=== PATIENT | female | born 1975 | race Caucasian/White ===

== ENCOUNTER 2020-08-16 12:58 | Observation (INO) | payer BC ==
[~2020-08-16] VITALS: Ht 162.6 cm; Wt 78.0 kg
[2020-08-16] MEDS ORDERED: SODIUM CHLORIDE 0.9% 1000ML 1,000 ML IV STA (13:14)
[2020-08-16] MEDS ORDERED: NITROGLYCERIN 0.4 MG SUBL ONE (13:26)
[2020-08-16] MEDS ORDERED: ONDANSETRON HCL INJ 2MG/ML 2ML 2 MG/ML VIAL IV NR (13:30)
[2020-08-16] MEDS ORDERED: MORPHINE SULFATE INJ 2 MG/ML SYR IV NR (13:30)
[2020-08-16] MEDS ORDERED: ASPIRIN 81 MG CHEW TAB PO NR (13:30)
[2020-08-16 13:36] LABS: BASOPHILS % 0.6 % (0.0-1.0); EOSINOPHILS # (AUTO) 0.1 (0.0-0.4); EOSINOPHILS % 1.4 % (0.0-6.0); HEMATOCRIT 43.3 % (34.2-44.1); HEMOGLOBIN 14.1 g/dL (12.0-16.0); LYMPHOCYTES # (AUTO) 3.5 (1.0-3.2); LYMPHOCYTES % 54.8 % (18.0-39.1); MEAN CORPUSCULAR HEMOGLOBIN 27.5 pg (28-32); MEAN CORPUSCULAR HGB CONC 32.6 g/dL (31-35); MEAN CORPUSCULAR VOLUME 84.4 fL (81-99); MONOCYTES # (AUTO) 0.4 (0.2-0.8); MONOCYTES % 5.7 % (4.4-11.3); NEUTROPHILS # (AUTO) 2.4 (2.1-6.9); NEUTROPHILS % 37.3 % (38.7-80.0); PLATELET COUNT 287 x10e3/uL (140-360); RED BLOOD COUNT 5.13 x10e6/uL (3.6-5.1); RED CELL DISTRIBUTION WIDTH 13.2 % (11.7-14.4)
[2020-08-16 13:50] LABS: INR 0.83; PARTIAL THROMBOPLASTIN TIME 24.7 seconds (23.8-35.5); PROTHROMBIN TIME 11.9 seconds (11.9-14.5)
[2020-08-16 14:01] LABS: ALBUMIN 4.4 g/dL (3.5-5.0); ALBUMIN/GLOBULIN RATIO 1.2 (0.8-2.0); ANION GAP 16.1 mmol/L (8-16); CALCIUM 9.5 mg/dL (8.4-10.2); CREATININE, SERUM 1.09 mg/dL (0.57-1.11); MAGNESIUM 1.7 MG/DL (1.3-2.1); POTASSIUM 4.1 mmol/L (3.5-5.1)
[2020-08-16 14:08] LABS: CREATINE KINASE MB 0.9 ng/mL (0-5.0)
[2020-08-16] MEDS ORDERED: NITROGLYCERIN 0.4 MG SUBL SL PRN (17:00)
[2020-08-16] MEDS: FAMOTIDINE 20 MG/2 ML VIAL IV SCH (18:45)
[2020-08-16] MEDS: MORPHINE SULFATE INJ 2 MG/ML SYR IV PRN (19:43)
[2020-08-16] MEDS: ONDANSETRON HCL INJ 2MG/ML 2ML 2 MG/ML VIAL IV PRN (19:44)
[2020-08-16 22:16] LABS: CREATINE KINASE MB 0.7 ng/mL (0-5.0)
[2020-08-17] VITALS (7 sets, daily range): BP systolic 102–124; BP diastolic 61–83
[2020-08-17] MEDS: ONDANSETRON HCL INJ 2MG/ML 2ML 2 MG/ML VIAL IV PRN (01:15)
[2020-08-17] MEDS: MORPHINE SULFATE INJ 2 MG/ML SYR IV PRN (01:15)
[2020-08-17] MEDS ORDERED: METOPROLOL TARTRATE INJ 1 MG/ML VIAL IV PRN (02:15)
[2020-08-17] MEDS ORDERED: POLYETHYLENE GLYCOL 3350 17 GM PACK PO PRN (02:15)
[2020-08-17] MEDS ORDERED: ACETAMINOPHEN 325 MG TAB PO PRN (02:15)
[2020-08-17] MEDS ORDERED: MAGNESIUM OXIDE 400 MG TAB PO ONE (02:15)
[2020-08-17] MEDS ORDERED: TEMAZEPAM 7.5 MG CAP PO PRN (02:15)
[2020-08-17] MEDS ORDERED: ACETAMIN/BUTALBITAL/CAFFEINE TAB PO PRN (02:45)
[2020-08-17] MEDS ORDERED: TIZANIDINE HCL 4 MG TAB PO PRN (02:45)
[2020-08-17] MEDS ORDERED: LORAZEPAM 1 MG TAB PO PRN (02:45)
[2020-08-17] MEDS: FAMOTIDINE 20 MG/2 ML VIAL IV SCH ×2 (05:48→16:35)
[2020-08-17 05:56] LABS: MAGNESIUM 1.8 MG/DL (1.3-2.1); PHOSPHORUS 4.1 MG/DL (2.3-4.7)
[2020-08-17 06:02] LABS: THYROID STIMULATING HORMONE 2.727 uIU/mL (0.350-4.940)
[2020-08-17 06:24] LABS: BASOPHILS # (AUTO) 0.1 (0.0-0.1); BASOPHILS % 0.7 % (0.0-1.0); EOSINOPHILS # (AUTO) 0.1 (0.0-0.4); EOSINOPHILS % 1.8 % (0.0-6.0); HEMATOCRIT 41.1 % (34.2-44.1); HEMOGLOBIN 13.2 g/dL (12.0-16.0); LYMPHOCYTES # (AUTO) 4.7 (1.0-3.2); LYMPHOCYTES % 66.1 % (18.0-39.1); MEAN CORPUSCULAR HEMOGLOBIN 27.5 pg (28-32); MEAN CORPUSCULAR HGB CONC 32.1 g/dL (31-35); MEAN CORPUSCULAR VOLUME 85.6 fL (81-99); MONOCYTES # (AUTO) 0.5 (0.2-0.8); MONOCYTES % 6.8 % (4.4-11.3); NEUTROPHILS # (AUTO) 1.7 (2.1-6.9); NEUTROPHILS % 24.5 % (38.7-80.0); PLATELET COUNT 248 x10e3/uL (140-360); RED CELL DISTRIBUTION WIDTH 13.4 % (11.7-14.4)
[2020-08-17 06:39] LABS: CREATINE KINASE MB 0.8 ng/mL (0-5.0)
[2020-08-17 07:42] LABS: ALANINE AMINOTRANSFERASE 17 IU/L (0-55); ALBUMIN 3.7 g/dL (3.5-5.0); ALBUMIN/GLOBULIN RATIO 1.2 (0.8-2.0); ALKALINE PHOSPHATASE 61 IU/L (40-150); ANION GAP 16.1 mmol/L (8-16); BLOOD UREA NITROGEN 11 mg/dL (7-26); BUN/CREATININE RATIO 11 (6-25); CALCIUM 8.8 mg/dL (8.4-10.2); CARBON DIOXIDE 23 mmol/L (22-29); CHLORIDE 108 mmol/L (98-107); CHOL/HDL RATIO 3.6 (3.0-3.6); CHOLESTEROL 187 MD/DL (0-199); CREATININE, SERUM 0.97 mg/dL (0.57-1.11); EST GLOMERULAR FILTRATION RATE > 60 ML/MIN (60-); GLUCOSE 87 mg/dL (74-118); HDL CHOLESTEROL 52 MG/DL (40-60); LDL CHOLESTEROL 103 MG/DL (60-130); POTASSIUM 4.1 mmol/L (3.5-5.1); SODIUM 143 mmol/L (136-145); TRIGLYCERIDES 159 MG/DL (0-149)
[2020-08-17] MEDS: DOCUSATE SODIUM 100 MG CAP PO SCH ×2 (08:37→16:35)
[2020-08-17] MEDS ORDERED: Acetamin/Butalbital/Caffeine PO ×2 (08:47→17:41)
[2020-08-17] MEDS ORDERED: ASPIRIN 81 MG ENTERIC COATED PO SCH (09:00)
[2020-08-17] MEDS ORDERED: ASPIRIN EC81 MG PO (09:01)
[2020-08-17] MEDS ORDERED: ACETAMINOPHEN325 M1 PO (09:01)
[2020-08-17] MEDS ORDERED: ATIVAN1 MG PO (09:01)
[2020-08-17] MEDS ORDERED: TIZANIDINE HCL4 MG PO (09:01)
[2020-08-17] MEDS ORDERED: NITROSTAT0.4 MG SL (09:01)
[2020-08-17] MEDS ORDERED: TEMAZEPAM 15 MG CAP PO PRN (13:30)
[2020-08-17] MEDS ORDERED: CYCLOBENZAPRINE10 MG PO (17:41)
[2020-08-17] MEDS ORDERED: VALIUM2 MG PO ×2 (17:41→17:44)
== END 2020-08-17 18:55 | disposition home or self-care (01) ==
LOC: ER 13:15 → ERHOLD 16:54 → MED/SURG2 08-17 01:00
PROVIDERS: ADMIT Internal Medicine; ATTEND Internal Medicine
DX: R07.89 Other chest pain (principal); R74.8 Abnormal levels of other serum enzymes; I34.0 Nonrheumatic mitral (valve) insufficiency; I07.1 Rheumatic tricuspid insufficiency; E83.42 Hypomagnesemia; R06.09 Other forms of dyspnea; G43.909 Migraine, unspecified, not intractable, without status migrainosus; Z20.822 Contact with and (suspected) exposure to COVID-19; Z79.82 Long term (current) use of aspirin; Z87.891 Personal history of nicotine dependence
CPT/HCPCS: 36415 ×2; 71045; 80053 ×2; 80061; 82150; 82550 ×2; 82553 ×2; 83036; 83690; 83735 ×2; 83880; 84100; 84443; 84484 ×2; 85025 ×2; 85379; 85610; 85730; 93005; 93017; 93306; 99284; G0378 ×2; J2270 ×2; J2405 ×2; J7030; U0002